=== PATIENT | female | born 1940 | race Caucasian/White ===

== ENCOUNTER 2023-10-24 11:55 | Outpatient (CLI) | payer MEDICARE, BC, SELFPAY | END 2023-10-24 11:56 | disposition home or self-care (01) | PROVIDERS: PCP Family Medicine; Visit Provider Family Medicine | DX: I10 Essential (primary) hypertension (principal); F10.11 Alcohol abuse, in remission; E03.9 Hypothyroidism, unspecified | CPT/HCPCS: 80048; 80061; 80076; 84439; 84443; 85025 ==